=== PATIENT | male | born 1955 | race African-American/Black ===

== ENCOUNTER 2019-10-27 15:05 | Inpatient (IN) | payer MEDICAID ==
[~2019-10-27] VITALS: Ht 167.6 cm; Wt 92.5 kg
[2019-10-27] MEDS ORDERED: ONDANSETRON HCL 4MG/2ML INJ IV STA ×2 (16:52→19:48)
[2019-10-27] MEDS ORDERED: MORPHINE SULFATE 4 MG/ML CPJ (NOT FOR IM USE) IV STA ×2 (16:52→19:48)
[2019-10-27] MEDS ORDERED: CEFTRIAXONE 1 G PREMIX 50 ML IV ONE (17:00)
[2019-10-27] MEDS ORDERED: ASPIRIN 81MG TABLET PO ONE (17:00)
[2019-10-27 18:01] LABS: HEMATOCRIT. 22.8 % (42.0-52.0); HEMOGLOBIN. 7.2 g/dL (14.0-18.0); MEAN CORPUSCULAR HEMOGLOBIN 27.3 pg (28.0-32.0); MEAN CORPUSCULAR VOLUME 86.3 fL (80.0-94.0); MEAN PLATELET VOLUME 6.8 fl (7.4-10.4); PLATELET 254 x1000/uL (130-400); RED BLOOD CELL COUNT 2.64 mill/uL (4.7-6.1); RED CELL DISTRIBUTION WIDTH 19.6 % (11.6-14.6)
[2019-10-27 18:09] LABS: CHLORIDE 100 mEq/L (98-107)
[2019-10-27 18:17] LABS: INR 1.1
[2019-10-27 18:56] LABS: PLATELET ESTIMATE NORMAL
[2019-10-27] MEDS ORDERED: HYDROCODONE/ACETAMINOPHEN 5/325MG TABLET PO PRN (20:45)
[2019-10-27] MEDS ORDERED: CLONIDINE 0.1MG TABLET PO PRN (20:45)
[2019-10-27] MEDS ORDERED: ONDANSETRON HCL 4MG/2ML INJ IV PRN (20:45)
[2019-10-27] MEDS ORDERED: ACETAMINOPHEN 325MG TABLET PO PRN (20:45)
[2019-10-27 21:14] LABS: TOTAL IRON BINDING CAPACITY 101 ug/dL (250-450)
[2019-10-27 21:50] VITALS: BP 133/50
[2019-10-27] MEDS ORDERED: DEXTROSE 50% WATER 50ML SYRINGE IV PRN (23:15)
[2019-10-28] VITALS: BP 129/52
[2019-10-28] MEDS: MORPHINE SULFATE 2 MG/ML CPJ (NOT FOR IM USE) IV PRN ×4 (00:01→19:41)
[2019-10-28 04:00] VITALS: BP 145/56
[2019-10-28] MEDS: BLOOD SUGAR DIAGNOSTIC STRIP TEST SCH ×4 (05:55→20:32)
[2019-10-28] MEDS: INSULIN LISPRO 100 UNITS/ML SUBCUT SCH ×4 (07:49→20:33)
[2019-10-28 08:00] VITALS: BP 143/56
[2019-10-28 09:50] LABS: HEMATOCRIT. 24.8 % (42.0-52.0); HEMOGLOBIN. 7.7 g/dL (14.0-18.0); MEAN CORPUSCULAR HEMOGLOBIN 27.4 pg (28.0-32.0); MEAN CORPUSCULAR VOLUME 88.3 fL (80.0-94.0); MEAN PLATELET VOLUME 7.5 fl (7.4-10.4); PLATELET 257 x1000/uL (130-400); RED BLOOD CELL COUNT 2.81 mill/uL (4.7-6.1); RED CELL DISTRIBUTION WIDTH 19.9 % (11.6-14.6)
[2019-10-28 13:06] LABS: PLATELET ESTIMATE NORMAL
[2019-10-28 14:00] VITALS: BP 136/57
[2019-10-28 17:20] LABS: HEMOGLOBIN. 7.2 g/dL (14.0-18.0); MEAN CORPUSCULAR HEMOGLOBIN 27.5 pg (28.0-32.0); MEAN CORPUSCULAR VOLUME 87.5 fL (80.0-94.0); MEAN PLATELET VOLUME 7.3 fl (7.4-10.4); PLATELET 270 x1000/uL (130-400); RED BLOOD CELL COUNT 2.63 mill/uL (4.7-6.1); RED CELL DISTRIBUTION WIDTH 19.6 % (11.6-14.6)
[2019-10-28 17:25] LABS: CHLORIDE 99 mEq/L (98-107)
[2019-10-28 18:30] LABS: PLATELET ESTIMATE NORMAL
[2019-10-28 20:00] VITALS: BP 142/58
[2019-10-29] VITALS (12 sets, daily range): BP systolic 106–150; BP diastolic 35–65
[2019-10-29] MEDS: MORPHINE SULFATE 2 MG/ML CPJ (NOT FOR IM USE) IV PRN ×2 (02:58→14:09)
[2019-10-29] MEDS: INSULIN LISPRO 100 UNITS/ML SUBCUT SCH ×5 (06:51→23:21)
[2019-10-29] MEDS: BLOOD SUGAR DIAGNOSTIC STRIP TEST SCH ×4 (06:51→21:00)
[2019-10-29 07:12] LABS: MEAN CORPUSCULAR HEMOGLOBIN 27.5 pg (28.0-32.0); MEAN CORPUSCULAR VOLUME 87.8 fL (80.0-94.0); MEAN PLATELET VOLUME 7.5 fl (7.4-10.4); PLATELET 245 x1000/uL (130-400); RED BLOOD CELL COUNT 2.51 mill/uL (4.7-6.1); RED CELL DISTRIBUTION WIDTH 19.1 % (11.6-14.6)
[2019-10-29 07:31] LABS: PHOSPHORUS 5.3 mg/dL (2.5-4.9)
[2019-10-29 07:50] LABS: HEMOGLOBIN. 6.9 g/dL (14.0-18.0)
[2019-10-29 10:53] LABS: PLATELET ESTIMATE NORMAL
[2019-10-29] MEDS: SEVELAMER CARBONATE 800 MG TABLET PO SCH ×2 (13:13→17:44)
[2019-10-29] MEDS: CEFTRIAXONE 1,000 MG in DEXTROSE 5% WATER 50 ML IV SCH (17:37)
[2019-10-29] MEDS: ATORVASTATIN CALCIUM 10MG TABLET PO SCH (23:20)
[2019-10-30] VITALS (7 sets, daily range): BP systolic 98–129; BP diastolic 5–68
[2019-10-30] MEDS: MORPHINE SULFATE 2 MG/ML CPJ (NOT FOR IM USE) IV PRN ×4 (02:16→23:40)
[2019-10-30 06:44] LABS: HEMATOCRIT. 30.9 % (42.0-52.0); MEAN CORPUSCULAR HEMOGLOBIN 27.9 pg (28.0-32.0); MEAN PLATELET VOLUME 7.4 fl (7.4-10.4); PLATELET 276 x1000/uL (130-400); RED BLOOD CELL COUNT 3.47 mill/uL (4.7-6.1); RED CELL DISTRIBUTION WIDTH 18.1 % (11.6-14.6)
[2019-10-30 07:13] LABS: HEMOGLOBIN. 9.7 g/dL (14.0-18.0)
[2019-10-30] MEDS: SEVELAMER CARBONATE 800 MG TABLET PO SCH ×3 (07:32→17:28)
[2019-10-30] MEDS: BLOOD SUGAR DIAGNOSTIC STRIP TEST SCH ×4 (07:36→21:15)
[2019-10-30] MEDS: INSULIN LISPRO 100 UNITS/ML SUBCUT SCH ×4 (07:50→21:00)
[2019-10-30] MEDS ORDERED: ASPIRIN 81MG TABLET PO SCH (09:00)
[2019-10-30] MEDS: FOLIC ACID/VITAMIN B COMP W-C TABLET PO SCH (09:04)
[2019-10-30] MEDS ORDERED: OXYC-515 MT (14:26)
[2019-10-30] MEDS ORDERED: CEPH-569 MT (14:26)
[2019-10-30] MEDS: CEFTRIAXONE 1,000 MG in DEXTROSE 5% WATER 50 ML IV SCH (16:41)
[2019-10-30] MEDS: ATORVASTATIN CALCIUM 10MG TABLET PO SCH (21:15)
[2019-10-30 21:32] LABS: PLATELET ESTIMATE NORMAL
[2019-10-31 04:00] VITALS: BP 145/68
[2019-10-31] MEDS: BLOOD SUGAR DIAGNOSTIC STRIP TEST SCH ×2 (07:04→12:20)
[2019-10-31] MEDS: INSULIN LISPRO 100 UNITS/ML SUBCUT SCH ×2 (07:19→12:50)
[2019-10-31 07:43] LABS: BASOPHILS % 0.5 % (0.0-2.0); EOSINOPHILS % 1.7 % (0.0-5.0); HEMATOCRIT. 28.9 % (42.0-52.0); HEMOGLOBIN. 8.9 g/dL (14.0-18.0); LYMPHOCYTES % 7.2 % (20.0-50.0); MEAN CORPUSCULAR HEMOGLOBIN 28.1 pg (28.0-32.0); MEAN CORPUSCULAR VOLUME 91.1 fL (80.0-94.0); MONOCYTES % 6.1 % (2.0-8.0); NEUTROPHILS % 84.5 % (40.0-76.0); RED BLOOD CELL COUNT 3.18 mill/uL (4.7-6.1); RED CELL DISTRIBUTION WIDTH 18.2 % (11.6-14.6)
[2019-10-31 08:00] VITALS: BP 123/54
[2019-10-31 08:22] VITALS: BP 123/54
[2019-10-31] MEDS: SEVELAMER CARBONATE 800 MG TABLET PO SCH ×2 (08:45→14:18)
[2019-10-31] MEDS: FOLIC ACID/VITAMIN B COMP W-C TABLET PO SCH (08:45)
[2019-10-31] MEDS: MORPHINE SULFATE 2 MG/ML CPJ (NOT FOR IM USE) IV PRN (08:47)
[2019-10-31] MEDS ORDERED: SODIUM POLYSTYRENE SULFONATE 15 G/60 ML BOT PO SCH (10:00)
[2019-10-31 12:00] VITALS: BP 124/54
[2019-10-31 14:11] LABS: PLATELET 245 x1000/uL (130-400)
== END 2019-10-31 15:00 | disposition home health service (06) | DRG 470 ==
LOC: ER 15:05 → EDBEDREQTM 20:20 → EDBEDREQ 20:20 → 6WST 20:27 → EDBEDREQ 20:44 → EDBEDREQTM 20:44 → ENRESERV 20:51
PROVIDERS: ADMIT Internal Medicine; ATTEND Internal Medicine
PROC: 30233N1 Transfusion of Nonautologous Red Blood Cells into Peripheral Vein, Percutaneous Approach (ICD-10-PCS; principal; 2019-10-29)
PROC: 5A1D70Z Performance of Urinary Filtration, Intermittent, Less than 6 Hours Per Day (ICD-10-PCS; 2019-10-29)
PROC: 5A1D70Z Performance of Urinary Filtration, Intermittent, Less than 6 Hours Per Day (ICD-10-PCS; 2019-10-30)
DX: I12.0 Hypertensive chronic kidney disease with stage 5 chronic kidney disease or end stage renal disease (principal); C41.9 Malignant neoplasm of bone and articular cartilage, unspecified; D64.9 Anemia, unspecified; E11.22 Type 2 diabetes mellitus with diabetic chronic kidney disease; E43 Unspecified severe protein-calorie malnutrition; E78.00 Pure hypercholesterolemia, unspecified; E78.5 Hyperlipidemia, unspecified; M48.00 Spinal stenosis, site unspecified; N18.6 End stage renal disease; E87.5 Hyperkalemia; G90.8 Other disorders of autonomic nervous system; N39.0 Urinary tract infection, site not specified; C79.89 Secondary malignant neoplasm of other specified sites; Z68.32 Body mass index [BMI] 32.0-32.9, adult; Z99.2 Dependence on renal dialysis; Z79.899 Other long term (current) drug therapy
CPT/HCPCS: 36415; 71045; 73060; 73200; 80048; 80053; 82728; 82962; 83540; 83550; 84100; 84484; 85025; 86850; 86900; 86920; 93005; 93970; 96365; 99291; J0696; J2270; J2405; J7060; P9016

== ENCOUNTER 2019-11-27 10:29 | Inpatient (IN) | payer MEDICAID ==
[~2019-11-27] VITALS: Ht 167.6 cm; Wt 98.9 kg
[~2019-11-27 10:29] MED LIST: CEPH-569 MT; OXYC-515 MT
[2019-11-27] MEDS ORDERED: MORPHINE SULFATE 4 MG/ML CPJ (NOT FOR IM USE) IV STA (11:53)
[2019-11-27] MEDS ORDERED: ONDANSETRON HCL 4MG/2ML INJ IV STA (11:53)
[2019-11-27 12:10] LABS: HEMATOCRIT. 26.2 % (42.0-52.0); HEMOGLOBIN. 8.4 g/dL (14.0-18.0); MEAN CORPUSCULAR HEMOGLOBIN 28.3 pg (28.0-32.0); MEAN CORPUSCULAR VOLUME 88.6 fL (80.0-94.0); MEAN PLATELET VOLUME 7.5 fl (7.4-10.4); PLATELET 297 x1000/uL (130-400); RED BLOOD CELL COUNT 2.96 mill/uL (4.7-6.1); RED CELL DISTRIBUTION WIDTH 19.3 % (11.6-14.6)
[2019-11-27 12:18] LABS: CHLORIDE 97 mEq/L (98-107)
[2019-11-27 12:25] LABS: PLATELET ESTIMATE NORMAL
[2019-11-27 13:11] LABS: INR 1.1; PROTHROMBIN TIME 11.4 sec (9.6-11.0)
[2019-11-27] MEDS: MORPHINE SULFATE 2 MG/ML CPJ (NOT FOR IM USE) IV NR ×2 (17:23→19:39)
[2019-11-27] MEDS ORDERED: ZOLPIDEM TARTRATE 5MG TABLET PO PRN (20:15)
[2019-11-27] MEDS ORDERED: CLONIDINE 0.1MG TABLET PO PRN (20:15)
[2019-11-27] MEDS: ONDANSETRON HCL 4MG/2ML INJ IV PRN (21:29)
[2019-11-27] MEDS: HYDROMORPHONE HCL/PF 2MG/ML CPJ IV PRN (23:03)
[2019-11-27] MEDS ORDERED: LISI-604 PO (23:08)
[2019-11-27 23:17] VITALS: BP 123/43
[2019-11-27 23:34] VITALS: BP 123/43
[2019-11-28] VITALS (9 sets, daily range): BP systolic 93–133; BP diastolic 42–66
[2019-11-28] MEDS ORDERED: DEXTROSE 50% WATER 50ML SYRINGE IV PRN (03:00)
[2019-11-28] MEDS: HYDROMORPHONE HCL/PF 2MG/ML CPJ IV PRN ×5 (04:34→22:16)
[2019-11-28] MEDS: BLOOD SUGAR DIAGNOSTIC STRIP TEST SCH ×4 (06:38→20:21)
[2019-11-28 07:15] LABS: MEAN CORPUSCULAR HEMOGLOBIN 28.1 pg (28.0-32.0); MEAN PLATELET VOLUME 7.1 fl (7.4-10.4); PLATELET 314 x1000/uL (130-400)
[2019-11-28] MEDS: INSULIN LISPRO 100 UNITS/ML SUBCUT SCH ×4 (07:19→20:21)
[2019-11-28] MEDS ORDERED: ACETAMINOPHEN 325MG TABLET PO PRN (10:30)
[2019-11-28 17:00] LABS: PLATELET ESTIMATE NORMAL
[2019-11-28] MEDS ORDERED: OXYCODONE HCL/ACETAMINOPHEN 5/325MG TABLET PO PRN (18:45)
[2019-11-28] MEDS: MIDODRINE HCL 2.5MG TABLET PO SCH (20:21)
[2019-11-28] MEDS: ONDANSETRON HCL 4MG/2ML INJ IV PRN (22:12)
[2019-11-28 23:32] LABS: HEMATOCRIT 26.6 % (42.0-52.0); HEMOGLOBIN 8.6 g/dL (14.0-18.0)
[2019-11-28 23:43] LABS: INR 1.1; PROTHROMBIN TIME 11.6 sec (9.6-11.0)
[2019-11-29 00:17] VITALS: BP 121/63
[2019-11-29 04:00] VITALS: BP 114/61
[2019-11-29] MEDS: HYDROMORPHONE HCL/PF 2MG/ML CPJ IV PRN ×2 (04:33→09:46)
[2019-11-29] MEDS: BLOOD SUGAR DIAGNOSTIC STRIP TEST SCH ×3 (06:54→17:26)
[2019-11-29] MEDS: INSULIN LISPRO 100 UNITS/ML SUBCUT SCH ×3 (07:43→17:26)
[2019-11-29 07:49] LABS: HEPATITIS B SURFACE ANTIGEN NEGATIVE
[2019-11-29 07:55] LABS: HEMOGLOBIN. 8.2 g/dL (14.0-18.0); MEAN CORPUSCULAR HEMOGLOBIN 28.1 pg (28.0-32.0); MEAN CORPUSCULAR VOLUME 88.5 fL (80.0-94.0); MEAN PLATELET VOLUME 7.2 fl (7.4-10.4); PLATELET 290 x1000/uL (130-400); RED BLOOD CELL COUNT 2.93 mill/uL (4.7-6.1); RED CELL DISTRIBUTION WIDTH 18.4 % (11.6-14.6)
[2019-11-29 08:00] VITALS: BP 125/62
[2019-11-29] MEDS: MIDODRINE HCL 2.5MG TABLET PO SCH ×2 (09:46→17:26)
[2019-11-29] MEDS ORDERED: CEFTRIAXONE 1 G PREMIX 50 ML IV SCH (11:30)
[2019-11-29 11:33] VITALS: BP 112/52
[2019-11-29 16:00] VITALS: BP 120/43
[2019-11-29 16:52] VITALS: BP 120/63
[2019-11-29 20:26] LABS: PLATELET ESTIMATE NORMAL
== END 2019-11-29 19:00 | disposition home or self-care (01) | DRG 343 ==
LOC: ER 10:53 → EDBEDREQTM 12:40 → EDBEDREQ 12:40 → 6WST 13:49 → EDBEDREQ 13:55 → ENRESERV 20:03
PROVIDERS: ADMIT Internal Medicine; ATTEND Internal Medicine
PROC: 5A1D70Z Performance of Urinary Filtration, Intermittent, Less than 6 Hours Per Day (ICD-10-PCS; 2019-11-27)
PROC: 30233N1 Transfusion of Nonautologous Red Blood Cells into Peripheral Vein, Percutaneous Approach (ICD-10-PCS; principal; 2019-11-28)
PROC: 5A1D70Z Performance of Urinary Filtration, Intermittent, Less than 6 Hours Per Day (ICD-10-PCS; 2019-11-28)
PROC: 5A1D70Z Performance of Urinary Filtration, Intermittent, Less than 6 Hours Per Day (ICD-10-PCS; 2019-11-29)
DX: C40.01 Malignant neoplasm of scapula and long bones of right upper limb (principal); I12.0 Hypertensive chronic kidney disease with stage 5 chronic kidney disease or end stage renal disease; E11.22 Type 2 diabetes mellitus with diabetic chronic kidney disease; E43 Unspecified severe protein-calorie malnutrition; N18.6 End stage renal disease; E78.5 Hyperlipidemia, unspecified; E87.5 Hyperkalemia; E87.1 Hypo-osmolality and hyponatremia; G89.29 Other chronic pain; M54.9 Dorsalgia, unspecified; D64.9 Anemia, unspecified; E87.70 Fluid overload, unspecified; E78.00 Pure hypercholesterolemia, unspecified; Z89.421 Acquired absence of other right toe(s); Z68.35 Body mass index [BMI] 35.0-35.9, adult; Z99.2 Dependence on renal dialysis; Z79.899 Other long term (current) drug therapy
CPT/HCPCS: 36415; 71045; 80048; 80053; 82962; 83036; 85014; 85018; 85025; 85049; 85384; 86803; 86850; 86900; 86920; 87340; 93005; 93970; 96374; 99285; J0696; J1170; J2270; J2405; P9016

== ENCOUNTER 2019-12-20 10:55 | Emergency (ER) | payer MEDICAID ==
[~2019-12-20] VITALS: Ht 167.6 cm; Wt 99.0 kg
[~2019-12-20 10:55] MED LIST changes: +LISI-604 PO
[2019-12-20 12:00] LABS: HEMATOCRIT. 24.9 % (42.0-52.0); HEMOGLOBIN. 7.9 g/dL (14.0-18.0); MEAN CORPUSCULAR HEMOGLOBIN 27.7 pg (28.0-32.0); MEAN CORPUSCULAR VOLUME 87.8 fL (80.0-94.0); MEAN PLATELET VOLUME 7.3 fl (7.4-10.4); PLATELET 341 x1000/uL (130-400); RED BLOOD CELL COUNT 2.84 mill/uL (4.7-6.1); RED CELL DISTRIBUTION WIDTH 18.7 % (11.6-14.6)
[2019-12-20 12:02] LABS: CHLORIDE 98 mEq/L (98-107)
[2019-12-20 12:04] LABS: INR 1.1; PROTHROMBIN TIME 11.4 sec (9.6-11.0)
[2019-12-20] MEDS ORDERED: KETOROLAC 30MG/ML VIAL IV ONE (12:15)
[2019-12-20 12:53] LABS: PLATELET ESTIMATE NORMAL
[2019-12-20 13:10] VITALS: BP 106/61
== END 2019-12-20 13:18 | disposition home or self-care (01) ==
LOC: ER 11:12
DX: D63.1 Anemia in chronic kidney disease (principal); E11.22 Type 2 diabetes mellitus with diabetic chronic kidney disease; I12.0 Hypertensive chronic kidney disease with stage 5 chronic kidney disease or end stage renal disease; N18.6 End stage renal disease; E78.00 Pure hypercholesterolemia, unspecified; Z89.9 Acquired absence of limb, unspecified; Z99.2 Dependence on renal dialysis
CPT/HCPCS: 36415; 71045; 80053; 85025; 85610; 86850; 86900; 86901; 93005; 96374; 99285; J1885